=== PATIENT | female | born 2000 ===

== ENCOUNTER 2020-03-02 22:25 | Inpatient (IN) | payer OTHER ==
[~2020-03-02] VITALS: Ht 165.1 cm; Wt 80.7 kg
[2020-03-02 23:38] LABS: BASOPHILS ABSOLUTE AUTO 0.04 K/mm3 (0.00-0.23); BASOPHILS PERCENT AUTO 0 % (0-2); EOSINOPHILS ABSOLUTE AUTO 0.14 K/mm3 (0.00-0.68); EOSINOPHILS PERCENT AUTO 1 % (0-6); Hematocrit 37.2 % (33.0-51.0); IMMATURE GRAN ABSOLUTE AUTO 0.05 K/mm3 (0.00-0.10); IMMATURE GRAN PERCENT AUTO 0 % (0-1); LYMPHOCYTES ABSOLUTE AUTO 2.97 K/mm3 (0.84-5.20); LYMPHOCYTES PERCENT AUTO 21 % (21-46); MONOCYTES ABSOLUTE AUTO 0.77 K/mm3 (0.16-1.47); MONOCYTES PERCENT AUTO 6 % (4-13); Mean Corpuscular HGB 33.9 pg (26.0-34.0); Mean Corpuscular HGB Conc 34.9 g/dL (31.5-36.5); Mean Corpuscular Volume 97 fL (80-100); Mean Platelet Volume 10.1 fL (9.1-12.4); NEUTROPHILS ABSOLUTE AUTO 9.99 K/mm3 (1.96-9.15); NEUTROPHILS PERCENT AUTO 72 % (41-73); Platelet Count 266 K/mm3 (150-400); RDW Coefficient Variation 11.2 % (11.7-14.2); RDW Standard Deviation 40.3 fL (35.1-46.3); Red Blood Cell Count 3.83 M/mm3 (3.80-5.20); White Blood Cell Count 13.96 K/mm3 (4.00-11.30)
--- NOTE | 2020-03-03 00:30 | NUR ---
RT CALLED TO STANDBY FOR DELIVERY DUE TO MECONIUM. BABY WAS DELIVERED TO MOTHER'S CHEST. GOOD TONE AND RESP EFFORT NOTED. RT EXCUSED. RN TO CALL IF RT NEEDED.
--- NOTE | 2020-03-04 12:07 | NUR ---
CONSULT, BABY IS ABOUT 24 HOURS OLD AND HAS BEEN BF AND BOTTLE SUPPLEMENTING WITH FORMULA. INSTRUCT/DEMO SELF EBM, UNABLE TO GET A DROP ON RIGHT SIDE, LATCH AND FURTHER WIDENING LATCH, AND USING FEEDING SYRINGE INTO CORNER OF MOUTH FOR SUPPLEMENTING WITH FORMULA, 10CC Q FEEDING FOR NOW. BABY IS SGA. MOM IS LOVING AND TRYING TO BF, POSITIONING BABY WITH SOME HELP. WILLING TO ASK QUESTIONS. INSTRUCT IN CHANGES TO EXPECT DURING THE FIRST WEEK WITH FEEDINGS AND BABY AND REFERRED TO BF [employer]CH[employer] AND BF [employer]OOK[employer] FOR PHOTOS AND INFORMATION. BABY HAS GOOD SUCKLE AND DEMONSTRATES A COORDINATED SUCK AND GOOD LATCH.
--- NOTE | 2020-03-04 15:20 | NUR ---
pt and mother given verbal and written discharge instructions in detail for 45 minutes. pt questions answered and verbalizes understanding. pt returning for follow up at [facility] monday at 1300 for ppfu and as well tomorrow with tamra davey at office. CORE referral faxed and [facility] set up for extra resources. pt understands to call if she has any problems or concerns. MMR vaccine given iv removed, vss. Pt slightly tearful and overwhelmed with DC instructions however felt better after reassurance and encouragement.
== END 2020-03-04 15:10 | disposition home or self-care (01) | DRG 807 ==
LOC: OBS 22:25 → BC 22:25 → OBS 22:46 → BC 22:47
PROVIDERS: ADMIT Advanced Practice Midwife
PROC: 10E0XZZ Delivery of Products of Conception, External Approach (ICD-10-PCS; principal; 2020-03-03)
PROC: 0UQG7ZZ Repair Vagina, Via Natural or Artificial Opening (ICD-10-PCS; 2020-03-03)
DX: O99.334 Smoking (tobacco) complicating childbirth (principal); Z37.0 Single live birth; F17.210 Nicotine dependence, cigarettes, uncomplicated; Z3A.39 39 weeks gestation of pregnancy; O71.4 Obstetric high vaginal laceration alone; O77.0 Labor and delivery complicated by meconium in amniotic fluid
CPT/HCPCS: 36415; 59025; 85025; 86850; 86900; 86901; 88307; 90471; 90707; 99213; J1885; J2590; J3010; J7120